=== PATIENT | male | born 1985 | race Caucasian/White ===

== ENCOUNTER 2024-06-06 02:30 | Emergency (ER) | payer OTHER, SELFPAY ==
[2024-06-06 02:30] VITALS: BMI 26.6
[2024-06-06 02:41] VITALS: BP 143/104
--- NOTE | 2024-06-06 03:24 | ED.GENMED ---
History of Present Illness
General
Chief Complaint: Musculo-Skeletal Complaint
Source: patient
Time Seen by Provider: 06/06/24 03:10
History of Present Illness
History of Present Illness:
38-year-old male presents emergency room complaint ankle pain. Patient states he twisted his right ankle earlier this evening. Because he had a fair amount of swelling and continued pain he thought he should get it checked to make sure he did not
break anything. He has been weightbearing. No other complaints.
Past History
Past History
ED Past Medical History: Psychiatric (ADHD, Anxiety, Depression) and Other (Raynaud's syndrome)
ED Past Surgical History: Orthopedic (Left elbow surgery, )
Social History
Tobacco: Former smoker
Alcohol: None
Drug: None
Personal: Single
Living: alone
Employment: Employed
Family History
Family History: Other (Noncontributory)
Phy Exam
Physical Exam
Physical Exam:
General: Awake, Alert, Oriented X3. No acute distress.
Vitals: unremarkable
Head: Atraumatic
Neuro: Grossly nonfocal
Skin: Warm, dry, no rash
Extremities: pulses equal b/l, moderate swelling around the right lateral malleolus. No tenderness palpation over the metatarsal, medial malleolus on the right. Mild tenderness palpation over the ligamentous structures rather than the actual
distal fibula itself.
Course
Orders/Labs/Results
Orders:
Orders
06/06/24 02:46
Ankle, Right 3 view CR [CR Ankle - Right Min 3 Views *] Urgent
Comment:
Reason For Exam: rolled ankle, c/o pain and swelling
Vital Signs
Initial and Last Documented VS:
Initial Vital Signs
Temp Pulse Resp BP Pulse Ox
98.9 F 99 14 143/104 98
06/06/24 02:41 06/06/24 02:41 06/06/24 02:41 06/06/24 02:41 06/06/24 02:41
Last Documented Vital Signs
Temp Pulse Resp BP Pulse Ox
98.9 F 99 14 143/104 98
06/06/24 02:41 06/06/24 02:41 06/06/24 02:41 06/06/24 02:41 06/06/24 02:41
MDM/Problems Addressed
Differential Diagnosis Includes:
Fracture, sprain, contusion
MDM/Problems Addressed:
X-ray reviewed by myself I see no evidence of a fracture. Will provide him with a Aircast, weight-bear as tolerated, follow-up with Ortho if not feeling better in the next 3 or 4 days.
*Radiology
Radiology exam reviewed: preliminary read by ED provider (No fracture noted on my review of the patient's ankle x-ray)
*Critical Care Note
Total Time (30-74mins, 75-104mins- exclusive of procedures): Not Applicable
ED Attending Note
-
Portions of this chart may have been created with voice recognition software.� Occasional wrong word or��sound alike� substitutions may have occurred due to the inherent limitations of voice recognition software.
Discharge Plan
Departure
Patient Disposition: Home (Routine Discharge)
Date of Disposition: 06/06/24
Time of Disposition: 03:24
Patient with high blood pressure during this ER visit?: No
Condition: Good
Discharge Problem:
Ankle sprain
Instructions: Knee Sprain (DC)
Prescriptions:
No Action
No Current Medications
0
Referrals:
NONE,* [Family Provider] -
Jg Orr MD [Active] -
Activity Restrictions/Additional Instructions:
I do not see any evidence of a fracture on your x-ray. We have provided you with a splint for support. You should start feeling better in the next 3 to 4 days. If you are not feeling better follow-up with orthopedics. I have given you the number
for Dr. Orr.
Interventions
Interventions:
*Risk Screen - Suicide Last Done: 06/06/24 03:00
*General Assessment Last Done: 06/06/24 02:41
*Neglect/Abuse Screening Last Done: 06/06/24 02:41
ED- Fall Risk Assessment Last Done: 06/06/24 02:41
*ED COVID-19 Vaccine History Last Done: 06/06/24 02:41
ED-Musculoskeletal Assessment Last Done: 06/06/24 03:00
Discharge Date and Time
Print Language: SURINAMESE
[2024-06-06] MEDS: MOTRIN 400 MG PO (03:41)
[2024-06-06 03:43] VITALS: BP 131/79
== END 2024-06-06 03:46 | disposition home or self-care (01) ==
LOC: EMR 02:30
PROVIDERS: EMERGENCY PHYSICIAN Emergency Medicine
DX: S93.401A Sprain of unspecified ligament of right ankle, initial encounter (principal); X50.1XXA Overexertion from prolonged static or awkward postures, initial encounter; F90.9 Attention-deficit hyperactivity disorder, unspecified type; I73.00 Raynaud's syndrome without gangrene; F41.9 Anxiety disorder, unspecified; F32.A Depression, unspecified; Z87.891 Personal history of nicotine dependence
CPT/HCPCS: 99283; 29515; 73610